=== PATIENT | male | born 1970 | race Caucasian/White ===

== ENCOUNTER 2019-09-24 10:38 | Emergency (ER) | payer OTHER ==
[~2019-09-24] VITALS: Ht 177.8 cm; Wt 104.3 kg
[~2019-09-24 10:38] MED LIST: ACET325; ADAL40PEN; ATOR40TA; DOCU100; FISH OIL 1,001000 MG PO; LUBRICANT 0.5-1 EACH OP; METO50 PO; OMEPRAZOLE20 MG; SILD50TA PO; TAMS.4ER
[2019-09-24] MEDS ORDERED: ONDA4ODT MM (14:26)
== END 2019-09-24 14:32 | disposition home or self-care (01) ==
LOC: ER 10:38
DX: S09.90XA Unspecified injury of head, initial encounter (principal); S16.1XXA Strain of muscle, fascia and tendon at neck level, initial encounter; I10 Essential (primary) hypertension; F41.9 Anxiety disorder, unspecified; F17.200 Nicotine dependence, unspecified, uncomplicated; Z88.0 Allergy status to penicillin; Z79.899 Other long term (current) drug therapy; X58.XXXA Exposure to other specified factors, initial encounter
CPT/HCPCS: 70450; 72125; 99283-25